=== PATIENT | female | born 1990 | race American Indian/Alaskan Native ===

== ENCOUNTER 2019-03-17 04:17 | Day surgery (SDC) | payer MEDICAID, OTHER ==
[2019-03-17] MEDS ORDERED: Sodium Chloride 0.9% 1,000 ML IV ONE (04:27)
[2019-03-17] MEDS ORDERED: Ondansetron 4 MG/2 ML SDV IV ONE ×3 (04:28→12:47)
[2019-03-17] MEDS ORDERED: Famotidine 20 MG/2 ML SDV IVPUSH ONE (04:28)
[2019-03-17] MEDS ORDERED: HYDROmorphone 1 MG/ML Syringe IVPUSH ONE (04:30)
[2019-03-17] MEDS ORDERED: Iopamidol 612 MG/ML 100 ML Bottle IVPUSH ONE (04:30)
--- NOTE | 2019-03-17 04:32 | EDM.PDOC ---
<Katlin Duncan - Last Filed: 03/17/19 06:17> ED HPI GENERAL MEDICAL PROBLEM - General Chief Complaint: Abdominal Pain Stated Complaint: SEVERE ABD PAIN Time Seen by Provider: 03/17/19 04:32 Source of Information: Reports: Patient History Limitations: Reports: No Limitations - History of Present Illness INITIAL COMMENTS - FREE TEXT/NARRATIVE: ED with c/o severe abdominal pain starting around 0200. Nausea no vomiting. Pain radiates through back. Describes as sharp. No diarrheal No bloating. No fever or chills. 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 Last meal chili dog. LMP one week ago. No ENT sx. No urinary c/o. Epigastric Pain Score (Numeric/FACES): 9 - Related Data Allergies Allergy/AdvReac Type Severity Reaction Status Date / Time Penicillins Allergy Rash Verified 03/17/19 04:26 Home Meds: Home Meds . 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 ED EXAM, GI/ABD - Physical Exam Exam: See Below Exam Limited By: No Limitations General Appearance: Alert, Moderate Distress, Obese Eyes: Bilateral: EOMI Ears: Normal External Exam, Hearing Grossly Normal Nose: Normal Inspection Throat/Mouth: Normal Inspection Head: Atraumatic, Normocephalic Neck: Normal Inspection Respiratory/Chest: No Respiratory Distress, Lungs Clear, Normal Breath Sounds Cardiovascular: Regular Rate, Rhythm GI/Abdominal Exam: Normal Bowel Sounds, Soft, Guarding, Tender (general upper greater mid and right upper with palpation). No: Distended, Rigid, Rebound Back Exam: Full Range of Motion Extremities: Normal Inspection Neurological: Alert, Oriented, Normal Cognition Psychiatric: Normal Affect, Normal Mood Skin Exam: Warm, Dry, Intact, Normal Color Course - Vital Signs Last Recorded V/S: Last Vital Signs Temp 35.9 C 03/17/19 06:22 Pulse 74 03/17/19 06:22 Resp 18 03/17/19 06:22 BP 110/63 03/17/19 06:22 Pulse Ox 97 03/17/19 06:22 - Orders/Labs/Meds Orders: Active Orders 24 hr Category Date Time Status Gallbladder [Abdomen Ltd] [US] Urgent Exams 03/17/19 06:57 Taken Clindamycin Phosphate [Cleocin] 600 mg Med 03/17/19 09:02 Active Sodium Chloride 0.9% [Normal Saline] 100 ml IV ONETIME Medication Orders Clindamycin Phosphate 600 mg/ (Sodium Chloride) 104 mls @ 200 mls/hr IV ONETIME ONE Stop: 03/17/19 09:33 Labs: Laboratory Tests 03/17/19 03/17/19 03/17/19 Range/Units 04:35 04:35 04:35 WBC (5.0-10.0) 10^3/uL RBC (4.2-5.4) 10^6/uL Hgb (12.0-16.0) g/dL Hct (37.0-47.0) % MCV (80-100) fL MCH (27.0-34.0) pg MCHC (33.0-35.0) g/dL Plt Count (150-450) 10^3/uL Neut % (Auto) (42.2-75.2) % Lymph % (Auto) (20.5-50.1) % Williamson % (Auto) (2-8) % Eos % (Auto) (1.0-3.0) % Baso % (Auto) (0.0-1.0) % Sodium (135-145) mmol/L Potassium (3.6-5.0) mmol/L Chloride (101-111) mmol/L Carbon Dioxide (21.0-31.0) mmol/L Anion Gap BUN (7-18) mg/dL Creatinine (0.6-1.3) mg/dL Est Cr Clr Drug Dosing mL/min Estimated GFR (MDRD) BUN/Creatinine Ratio Glucose (74-105) mg/dL Lactic Acid (0.5-2.2) mmol/L Calcium (8.4-10.2) mg/dl Total Bilirubin (0.2-1.0) mg/dL AST (10-42) IU/L ALT (10-60) IU/L Alkaline Phosphatase (42-121) IU/L Total Protein (6.7-8.2) g/dl Albumin (3.2-5.5) g/dl Globulin Albumin/Globulin Ratio Amylase (28-100) U/L Lipase (22-51) U/L Urine Color Yellow (YELLOW) Urine Appearance Clear (CLEAR) Urine pH 6.0 (5.0-9.0) Ur Specific [place] >= 1.030 (1.005-1.030) Urine Protein 100 H (NEGATIVE) Urine Glucose (UA) Negative (NEGATIVE) Urine Ketones Negative (NEGATIVE) Urine Occult Blood Trace-intact H (NEGATIVE) Urine Nitrite Negative (NEGATIVE) Urine Bilirubin Negative (NEGATIVE) Urine Urobilinogen 0.2 (0.2-1.0) mg/dL Ur Leukocyte Esterase Negative (NEGATIVE) Urine RBC 0-5 /HPF Urine WBC 0-5 (0-5/HPF) /HPF Ur Epithelial Cells Moderate H (NOT SEEN) /HPF Urine Bacteria Few (0-FEW/HPF) /HPF Urine Mucus Moderate H (NOT SEEN) /LPF Urine HCG, Qual Negative Urine Opiates Screen Negative (NEGATIVE) Ur Oxycodone Screen Negative (NEGATIVE) Urine Methadone Screen Negative (NEGATIVE) Ur Barbiturates Screen Negative (NEGATIVE) U Tricyclic Antidepress Negative (NEGATIVE) Ur Phencyclidine Scrn Negative (NEGATIVE) Ur Amphetamine Screen Negative (NEGATIVE) U Methamphetamines Scrn Negative (NEGATIVE) Urine MDMA Screen Negative (NEGATIVE) U Benzodiazepines Scrn Negative (NEGATIVE) Urine Cocaine Screen Negative (NEGATIVE) U Marijuana (THC) Screen Positive H (NEGATIVE) 03/17/19 03/17/19 03/17/19 Range/Units 04:36 04:36 04:36 WBC 8.8 (5.0-10.0) 10^3/uL RBC 5.20 (4.2-5.4) 10^6/uL Hgb 14.5 (12.0-16.0) g/dL Hct 42.6 (37.0-47.0) % MCV 81.9 (80-100) fL MCH 27.9 (27.0-34.0) pg MCHC 34.0 (33.0-35.0) g/dL Plt Count 409 (150-450) 10^3/uL Neut % (Auto) 50.3 (42.2-75.2) % Lymph % (Auto) 37.8 (20.5-50.1) % Williamson % (Auto) 6.5 (2-8) % Eos % (Auto) 5.1 H (1.0-3.0) % Baso % (Auto) 0.3 (0.0-1.0) % Sodium 139 (135-145) mmol/L Potassium 3.8 (3.6-5.0) mmol/L Chloride 106 (101-111) mmol/L Carbon Dioxide 25.0 (21.0-31.0) mmol/L Anion Gap 11.8 BUN 9 (7-18) mg/dL Creatinine 0.5 L (0.6-1.3) mg/dL Est Cr Clr Drug Dosing 152.61 mL/min Estimated GFR (MDRD) > 60 BUN/Creatinine Ratio 18.00 Glucose 200 H (74-105) mg/dL Lactic Acid 1.4 (0.5-2.2) mmol/L Calcium 8.3 L (8.4-10.2) mg/dl Total Bilirubin 1.1 H (0.2-1.0) mg/dL AST 60 H (10-42) IU/L ALT 73 H (10-60) IU/L Alkaline Phosphatase 88 (42-121) IU/L Total Protein 7.9 (6.7-8.2) g/dl Albumin 3.6 (3.2-5.5) g/dl Globulin 4.3 Albumin/Globulin Ratio 0.84 Amylase 33 (28-100) U/L Lipase 32 (22-51) U/L Urine Color (YELLOW) Urine Appearance (CLEAR) Urine pH (5.0-9.0) Ur Specific [place] (1.005-1.030) Urine Protein (NEGATIVE) Urine Glucose (UA) (NEGATIVE) Urine Ketones (NEGATIVE) Urine Occult Blood (NEGATIVE) Urine Nitrite (NEGATIVE) Urine Bilirubin (NEGATIVE) Urine Urobilinogen (0.2-1.0) mg/dL Ur Leukocyte Esterase (NEGATIVE) Urine RBC /HPF Urine WBC (0-5/HPF) /HPF Ur Epithelial Cells (NOT SEEN) /HPF Urine Bacteria (0-FEW/HPF) /HPF Urine Mucus (NOT SEEN) /LPF Urine HCG, Qual Urine Opiates Screen (NEGATIVE) Ur Oxycodone Screen (NEGATIVE) Urine Methadone Screen (NEGATIVE) Ur Barbiturates Screen (NEGATIVE) U Tricyclic Antidepress (NEGATIVE) Ur Phencyclidine Scrn (NEGATIVE) Ur Amphetamine Screen (NEGATIVE) U Methamphetamines Scrn (NEGATIVE) Urine MDMA Screen (NEGATIVE) U Benzodiazepines Scrn (NEGATIVE) Urine Cocaine Screen (NEGATIVE) U Marijuana (THC) Screen (NEGATIVE) Meds: Medications Generic Name Dose Route Start Last Admin Trade Name Freq PRN Reason Stop Dose Admin Clindamycin Phosphate 600 mg/ 104 mls @ 200 mls/hr 03/17/19 09:02 Sodium Chloride IV 03/17/19 09:33 ONETIME ONE Discontinued Medications Generic Name Dose Route Start Last Admin Trade Name Freq PRN Reason Stop Dose Admin Diphenhydramine HCl 25 mg 03/17/19 09:04 Benadryl IVPUSH 03/17/19 09:05 ONETIME ONE Famotidine 20 mg 03/17/19 04:28 03/17/19 04:39 Pepcid IVPUSH 03/17/19 04:29 20 mg ONETIME ONE Administration Hydromorphone HCl 1 mg 03/17/19 04:30 03/17/19 04:41 Dilaudid IVPUSH 03/17/19 04:31 1 mg ONETIME ONE Administration Sodium Chloride 1,000 mls @ 999 mls/hr 03/17/19 04:27 03/17/19 04:37 Normal Saline IV 03/17/19 05:27 999 mls/hr .BOLUS ONE Administration Iopamidol 100 ml 03/17/19 04:30 03/17/19 06:23 Isovue-300 (61%) IVPUSH 03/17/19 04:31 100 ml ONETIME ONE Administration Ondansetron HCl 4 mg 03/17/19 04:28 03/17/19 04:39 Zofran IV 03/17/19 04:29 4 mg ONETIME ONE Administration Ondansetron HCl 4 mg 03/17/19 09:04 Zofran IV 03/17/19 09:05 ONETIME ONE Departure - Departure Disposition: Admitted As Inpatient 64 Clinical Impression: Cholelithiasis Qualifiers: Cholelithiasis location: gallbladder Cholecystitis presence: without cholecystitis Biliary obstruction: without biliary obstruction Qualified Code(s) : K80.20 - Calculus of gallbladder without cholecystitis without obstruction - Discharge Information Forms: ED Department Discharge - My Orders Last 24 Hours: My Active Orders 03/17/19 06:57 Gallbladder [Abdomen Ltd] [US] Urgent 03/17/19 09:02 Clindamycin Phosphate [Cleocin] 600 mg Sodium Chloride 0.9% [Normal Saline] 100 ml IV ONETIME - Assessment/Plan Last 24 Hours: My Active Orders 03/17/19 06:57 Gallbladder [Abdomen Ltd] [US] Urgent 03/17/19 09:02 Clindamycin Phosphate [Cleocin] 600 mg Sodium Chloride 0.9% [Normal Saline] 100 ml IV ONETIME <ScarNicholas marshall Franklyn - Last Filed: 03/17/19 09:19> Course - Re-Assessments/Exams Free Text/Narrative Re-Assessment/Exam: 03/17/19 09:02 I assumed care of this patient at 0700 hrs. today. She is resting comfortably on the cot she is still complaining of nausea although little to no pain. Her abdomen is soft mildly tender in the epigastric without guarding or rebound. CT scan is concerning for some fat stranding around the gallbladder and concerns for acute cholecystitis. Ultrasound of the gallbladder shows a rather large gallstone common bile duct saul are okay. No pericystic fluid. I did have Dr. Bruno come and see the patient in the ED. The decision was made to remove the gallbladder today. Please see Dr. Acosta note. The patient was comfortable with this plan and her questions answered. Departure - Departure Time of Disposition: :17 - Assessment/Plan Assessment:: Cholelithiasis elevated liver enzymes Dr. Bruno taking to surgery from the ED. Plan: Admit Dr. Bruno.
[2019-03-17 05:05] LABS: ANION GAP 11.8; CHLORIDE,CL 106 mmol/L (101-111); SODIUM,NA 139 mmol/L (135-145)
[2019-03-17] MEDS ORDERED: Clindamycin Phosphate 600 MG in Sodium Chloride 0.9% 100 ML IV ONE (09:02)
[2019-03-17] MEDS ORDERED: diphenhydrAMINE 50 MG/ML SDV IVPUSH ONE (09:04)
--- NOTE | 2019-03-17 10:17 | HP ---
INTRODUCTION: This 29-year-old female presented to the emergency room with epigastric and abdominal pain in the right upper quadrant. It does radiate all over the upper abdomen. CT scan shows a large stone within the gallbladder. Her bilirubin is slightly elevated at 1.8, but no other elevated white blood cell count or liver enzymes. This is the first time she has experienced this attack. She did not know she has had any gallstone problems before. PAST MEDICAL HISTORY: The patient has allergies to penicillin. CURRENT MEDICATIONS: Albuterol inhaler p.r.n. PRIOR SURGERIES: Include one diagnostic laparoscopy for uterine evaluation. FAMILY HISTORY AND SOCIAL HISTORY: The patient lives here locally. She works at [employer]. She does not smoke. She has children who are teenagers. REVIEW OF SYSTEMS: Negative for all systems. PHYSICAL EXAMINATION: HEENT: Normal. Chest: Lungs are clear bilaterally. Heart: Normal sinus rhythm. Abdomen: Morbidly obese. She has mild tenderness in the epigastric and right upper quadrant area. She is too large to palpate a liver or a mass. No evidence of hernias. Extremities: Normal. Neurologic: Intact. LABORATORY DATA: Significant lab is elevated bilirubin and a negative test. PLAN: This patient is n.p.o. I discussed the risks, benefits, and expected outcomes of proceeding with a cholecystectomy today. She is amenable to that course. At only 29 years old, she will certainly have problems with a large gallstone and feels best to have this procedure over with today. We will proceed to the operating room. [facility] /[id number]
[2019-03-17] MEDS: Lactated Ringers 1,000 ML IV SCH ×2 (11:00→15:22)
[2019-03-17] MEDS ORDERED: Acetaminophen/oxyCODONE 325-5 MG Tab PO PRN (12:45)
[2019-03-17] MEDS ORDERED: Morphine 2 MG/ML Syringe IVPUSH PRN (12:45)
[2019-03-17] MEDS ORDERED: Ketorolac 30 MG/ML SDV IVPUSH ONE (12:47)
[2019-03-17] MEDS ORDERED: Propofol 200 MG/20 ML SDV IV ONE (12:47)
[2019-03-17] MEDS ORDERED: fentaNYL 100 MCG/2 ML SDV IV ONE (12:47)
[2019-03-17] MEDS ORDERED: Lidocaine 2% 20 ML MDV INJECT ONE (12:47)
[2019-03-17] MEDS ORDERED: fentaNYL 250 MCG/5 ML SDV IV ONE (12:47)
[2019-03-17] MEDS ORDERED: Glycopyrrolate 0.2 MG/ML 2 ML SDV IV ONE (12:47)
[2019-03-17] MEDS ORDERED: Neostigmine Methylsulfate 10 MG/10 ML MDV IV ONE (12:47)
[2019-03-17] MEDS ORDERED: Midazolam 1 MG/ML 2 ML SDV IV ONE (12:47)
[2019-03-17] MEDS ORDERED: Rocuronium 100 MG/10 ML MDV IV ONE (12:47)
[2019-03-17] MEDS ORDERED: Sodium Chloride 0.9% 10 ML Syringe FLUSH PRN (12:48)
--- NOTE | 2019-03-17 14:51 | OR ---
DATE: 03/17/2019 PREOPERATIVE DIAGNOSIS: Cholecystitis with cholelithiasis. POSTOPERATIVE DIAGNOSIS: Cholecystitis with cholelithiasis. PROCEDURE PERFORMED: Laparoscopic cholecystectomy. ANESTHESIA: General. ESTIMATED BLOOD LOSS: Minimal. SPECIMENS: Gallbladder and stone. OPERATIVE FINDINGS: Single, large stone. INDICATION FOR PROCEDURE: This 29-year-old female presented to the emergency room today with acute epigastric and right upper quadrant abdominal pain. CT scan of the abdomen showed a single large stone. PROCEDURE IN DETAIL: After adequate preparation, a Veress needle was placed in the right upper quadrant as an alternate access entry port. The abdomen was insufflated, and then a 5 mm trocar was inserted. The 3 other trocars were placed under direct vision. The gallbladder appeared to be normal and was not thick-walled or chronically infected. It was elevated up over the liver, and the cystic triangle structures were dissected free. They were multiply clipped and divided. There was some bleeding of the cystic duct area, and several of the clips had to be applied to stop the bleeding that eventually occurred. The gallbladder was taken off the liver bed using blunt, sharp, and cautery dissection. The gallbladder bed was then cauterized for hemostasis. The gallbladder was placed in a sterile retrieval bag and brought out through the epigastric trocar site. The abdomen was desufflated. The epigastric trocar site fascia was closed with 0 Vicryl suture, and Monocryl was used for the skin. The gallbladder was opened on the back table and contained one large olive-sized single stone. [facility] /[id number]
[2019-03-17] MEDS: Morphine 2 MG/ML Syringe IVPUSH PRN ×2 (15:50→17:06)
[2019-03-17] MEDS ORDERED: Ondansetron 4 MG/2 ML SDV IV PRN (18:49)
[2019-03-17] MEDS: Acetaminophen/oxyCODONE 325-5 MG Tab PO PRN (19:09)
[2019-03-18] MEDS: Acetaminophen/oxyCODONE 325-5 MG Tab PO PRN ×2 (00:32→06:45)
--- NOTE | 2019-03-18 08:21 | PCM.SN ---
- Free Text/Narrative Note: Patient stable POD# 1. Some nausea last night, now resolved. Minimal pain. Wounds clean and dry. PO tolerated with problem. Able to ambulate on own. VSS. Labs today better. WBC and Hgb now normal. LFT's better even though ally. elevated (it in indirect). Will discharge today. No FU needed. No pain meds given. No restriction on diet or activity. May shower. May return to work on 03-29-19.
== END 2019-03-18 09:45 | disposition home or self-care (01) ==
LOC: DL.SDS 04:17 → DL.MS 12:46 → DL.SDS 12:46
PROVIDERS: ATTEND Surgery
DX: K80.10 Calculus of gallbladder with chronic cholecystitis without obstruction (principal); N80.0 Endometriosis of uterus; J45.909 Unspecified asthma, uncomplicated; E66.01 Morbid (severe) obesity due to excess calories; Z88.0 Allergy status to penicillin; Z68.42 Body mass index [BMI] 45.0-49.9, adult
CPT/HCPCS: 36415; 47562; 74177; 76705; 80053; 80076; 80305; 81001; 81025; 82150; 83605; 83690; 85025; A9270; J1170; J1200; J1885; J2001; J2250; J2270; J2405; J2704; J2710; J3010; J3490; J7030; J7050; J7120; Q9967

== ENCOUNTER 2019-03-18 21:40 | Emergency (ER) | payer MEDICAID ==
[2019-03-18] MEDS ORDERED: Sodium Chloride 0.9% 1,000 ML IV ONE (22:48)
[2019-03-18] MEDS ORDERED: Morphine 2 MG/ML Syringe IVPUSH ONE (22:48)
[2019-03-18] MEDS ORDERED: Ondansetron 4 MG/2 ML SDV IV ONE (22:48)
--- NOTE | 2019-03-18 22:51 | EDM.PDOC ---
ED HPI GENERAL MEDICAL PROBLEM - General Chief Complaint: Abdominal Pain Stated Complaint: GALLBLADDER SURGERY PAIN ISSUES PER PT Time Seen by Provider: 03/18/19 22:49 Source of Information: Reports: Patient History Limitations: Reports: No Limitations - History of Present Illness INITIAL COMMENTS - FREE TEXT/NARRATIVE: s/p lap peggy yesterday, d/c today. did eat but no BM yet. still had abd pain mostly at surgical sites. 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 ED EXAM, GI/ABD - Physical Exam Exam: See Below Exam Limited By: No Limitations General Appearance: Alert, WD/WN, Mild Distress, Moderate Distress, Other ( tearful). No: Active Emesis Ears: Hearing Grossly Normal Throat/Mouth: Normal Voice, No Airway Compromise Head: Atraumatic Neck: Non-Tender, Full Range of Motion Respiratory/Chest: No Respiratory Distress Cardiovascular: Regular Rate, Rhythm GI/Abdominal Exam: Tender, Other (general, surgical sites without s/s cellulitis ). No: Distended, Guarding, Rigid, Rebound Neurological: Alert, Oriented, Normal Cognition, Normal Gait, No Motor/Sensory Deficits Psychiatric: Tearful Skin Exam: Warm, Dry, Normal Color Lymphatic: No Adenopathy Course - Vital Signs Last Recorded V/S: Last Vital Signs Temp 37.1 C 03/19/19 02:10 Pulse 86 03/19/19 02:10 Resp 17 03/19/19 02:10 BP 135/76 03/19/19 02:10 Pulse Ox 96 03/19/19 02:10 - Orders/Labs/Meds Orders: Active Orders 24 hr Category Date Time Status Abdomen Pelvis w Cont [CT] Urgent Exams 03/19/19 00:38 Taken Labs: Laboratory Tests 03/18/19 03/18/19 03/18/19 Range/Units 22:55 22:55 22:55 WBC 13.3 H (5.0-10.0) 10^3/uL RBC 5.20 (4.2-5.4) 10^6/uL Hgb 14.8 D (12.0-16.0) g/dL Hct 43.0 (37.0-47.0) % MCV 82.7 (80-100) fL MCH 28.5 (27.0-34.0) pg MCHC 34.4 (33.0-35.0) g/dL Plt Count 388 (150-450) 10^3/uL Neut % (Auto) 78.5 H (42.2-75.2) % Lymph % (Auto) 13.4 L (20.5-50.1) % [place] % (Auto) 7.1 (2-8) % Eos % (Auto) 0.7 L (1.0-3.0) % Baso % (Auto) 0.3 (0.0-1.0) % Sodium 138 (135-145) mmol/L Potassium 3.5 L (3.6-5.0) mmol/L Chloride 102 (101-111) mmol/L Carbon Dioxide 27.0 (21.0-31.0) mmol/L Anion Gap 12.5 BUN 6 L (7-18) mg/dL Creatinine 0.6 (0.6-1.3) mg/dL Est Cr Clr Drug Dosing 127.18 mL/min Estimated GFR (MDRD) > 60 BUN/Creatinine Ratio 10.00 Glucose 194 H (74-105) mg/dL Lactic Acid 1.5 (0.5-2.2) mmol/L Calcium 8.5 (8.4-10.2) mg/dl Total Bilirubin 2.2 H (0.2-1.0) mg/dL Direct Bilirubin 0.4 H (0.0-0.2) mg/dL AST 66 H (10-42) IU/L ALT 83 H (10-60) IU/L Alkaline Phosphatase 75 (42-121) IU/L Total Protein 8.1 (6.7-8.2) g/dl Albumin 3.7 (3.2-5.5) g/dl Globulin 4.4 Albumin/Globulin Ratio 0.84 Meds: Medications Discontinued Medications Generic Name Dose Route Start Last Admin Trade Name Freq PRN Reason Stop Dose Admin Hydromorphone HCl 1 mg 03/19/19 00:38 03/19/19 00:44 Dilaudid IVPUSH 03/19/19 00:39 1 mg ONETIME ONE Administration Sodium Chloride 1,000 mls @ 999 mls/hr 03/18/19 22:48 03/18/19 23:10 Normal Saline IV 03/18/19 23:48 999 mls/hr .BOLUS ONE Administration Clindamycin Phosphate 900 mg/ 106 mls @ 200 mls/hr 03/19/19 01:55 03/19/19 02 :04 Sodium Chloride IV 03/19/19 02:26 200 mls/hr ONETIME ONE Administration Iopamidol 100 ml 03/19/19 00:38 03/19/19 00:48 Isovue-300 (61%) IVPUSH 03/19/19 00:39 100 ml ONETIME ONE Administration Morphine Sulfate 2 mg 03/18/19 22:48 03/18/19 23:09 Morphine IVPUSH 03/18/19 22:49 2 mg ONETIME ONE Administration Ondansetron HCl 4 mg 03/18/19 22:48 03/18/19 23:06 Zofran IV 03/18/19 22:49 4 mg ONETIME ONE Administration - Re-Assessments/Exams Free Text/Narrative Re-Assessment/Exam: 03/19/19 03:04 results discussed with pt & spouse. Departure - Departure Time of Disposition: 03:04 Disposition: Home, Self-Care 01 Condition: Good Clinical Impression: Postoperative generalized abdominal pain - Discharge Information Forms: ED Department Discharge Additional Instructions: 1) rest and avoid bending lifting straining 2) no solid foods next 3 to 4 days 3) have broth, jello, popsicle, prune juice 4) follow up at clinic rx given; vicodin 5/325mg bid to tid prn pain x 12 - My Orders Last 24 Hours: My Active Orders 03/19/19 00:38 Abdomen Pelvis w Cont [CT] Urgent - Assessment/Plan Last 24 Hours: My Active Orders 03/19/19 00:38 Abdomen Pelvis w Cont [CT] Urgent
[2019-03-18 23:21] LABS: ANION GAP 12.5; CHLORIDE,CL 102 mmol/L (101-111); SODIUM,NA 138 mmol/L (135-145)
[2019-03-19] MEDS ORDERED: HYDROmorphone 1 MG/ML Syringe IVPUSH ONE (00:38)
[2019-03-19] MEDS ORDERED: Iopamidol 612 MG/ML 100 ML Bottle IVPUSH ONE (00:38)
[2019-03-19] MEDS ORDERED: Clindamycin Phosphate 900 MG in Sodium Chloride 0.9% 100 ML IV ONE (01:55)
== END 2019-03-19 03:10 | disposition home or self-care (01) ==
LOC: DL.ED 21:40
DX: G89.18 Other acute postprocedural pain (principal); R10.84 Generalized abdominal pain; Z88.0 Allergy status to penicillin; Z90.49 Acquired absence of other specified parts of digestive tract
CPT/HCPCS: 36415; 74177; 80053; 82248; 83605; 85025; 96361; 96365; 96375; 99284; J1170; J2270; J2405; J3490; J7030; J7050; Q9967

== ENCOUNTER 2020-02-14 19:32 | Emergency (ER) | payer SELFPAY ==
[2020-02-14 20:21] LABS: ANION GAP 11.8 mEq/L (7-13); CHLORIDE,CL 104 mmol/L (98-107); SODIUM,NA 140 mmol/L (136-145)
--- NOTE | 2020-02-14 20:31 | CT ---
PROCEDURE INFORMATION: Exam: CT Cervical Spine Without Contrast Exam date and time: 02/14/2020 8:14 PM Age: 30 years old Clinical indication: Injury or trauma; Fall; Initial encounter; Concussion /head injury; Additional info: Dizzy fell hit head in shower, vomiting TECHNIQUE: Imaging protocol: Computed tomography images of the cervical spine without contrast. Radiation optimization: All CT scans at this facility use at least one of these dose optimization techniques: automated exposure control; mA and/or kV adjustment per patient size (includes targeted exams where dose is matched to clinical indication); or iterative reconstruction. COMPARISON: No relevant prior studies available. FINDINGS: Vertebrae: There is normal alignment throughout the cervical spine. There is mild reversal of the normal cervical lordosis. There is preservation of the vertebral body heights. No acute fracture is identified. The ring of C1 is intact. The dens is intact. The atlantoaxial articulation is preserved. The facet joints are normally aligned and articulated. Discs/Spinal canal/Neural foramina: The intervertebral disc heights are preserved. There are prominent anterior osteophytes at C5-C6 and C6-C7. The central canal caliber is well maintained. No neural foraminal stenosis is identified. Other bones/joints: The base of the skull is intact. The temporomandibular joints are normally articulated. Soft tissues: No soft tissue hematoma is appreciated. There are prominent cervical lymph nodes. The left jugulodigastric lymph node measures 20 x 14 mm in the axial plane and the right jugulodigastric lymph node measures the same. Lungs: The visualized lung apices are clear. IMPRESSION: No acute fracture or malalignment identified.
--- NOTE | 2020-02-14 20:33 | CT ---
PROCEDURE INFORMATION: Exam: CT Head Without Contrast Exam date and time: 02/14/2020 8:14 PM Age: 30 years old Clinical indication: Injury or trauma; Fall; Initial encounter; Concussion / head injury; Additional info: Dizzy fell hit head in shower, vomiting TECHNIQUE: Imaging protocol: Computed tomography of the head without contrast. Radiation optimization: All CT scans at this facility use at least one of these dose optimization techniques: automated exposure control; mA and/or kV adjustment per patient size (includes targeted exams where dose is matched to clinical indication); or iterative reconstruction. COMPARISON: No relevant prior studies available. FINDINGS: Brain: The brain is normal in appearance. There is no intracranial hemorrhage. There is no acute edema, mass effect or shift of the normally midline structures. The marie-white matter differentiation is preserved. There are no extra-axial fluid collections. Ventricles: The ventricles and sulci are age appropriate. Bones/joints: The calvarium is intact. Paranasal sinuses: There is a 2 cm mucous retention cyst or polyp in the left maxillary sinus. The sinuses are otherwise normally aerated. Mastoid air cells: The mastoid air cells and middle ear cavities are normally aerated. Soft tissues: No soft tissue hematoma is identified. IMPRESSION: No acute intracranial hemorrhage or edema identified.
--- NOTE | 2020-02-14 20:48 | EDM.PDOC ---
ED HPI GENERAL MEDICAL PROBLEM - General Chief Complaint: Head Injury Stated Complaint: FELL HIT HEAD, FAINTED. Time Seen by Provider: 02/14/20 19:50 Source of Information: Reports: Patient History Limitations: Reports: No Limitations - History of Present Illness INITIAL COMMENTS - FREE TEXT/NARRATIVE: fell today in shower around 1230, felt dizzy and was attempting to sit down and fell forward hit right side of head and 'passed out, vomited x 3 after,felt some better after eating peanut butter toast. Blurred vision earlier but resolved now, One time previous similar episode 2 years ago. Prior tubal 10 years ago. No recent fever or chills. No urinary c/o No cough No chest pain. Right Head Pain Score (Numeric/FACES): 3 - Related Data Allergies Allergy/AdvReac Type Severity Reaction Status Date / Time Penicillins Allergy Rash Verified 03/18/19 21:45 Home Meds: Home Meds . 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 ED EXAM, HEAD INJURY - Physical Exam Exam: See Below Exam Limited By: No Limitations General Appearance: Alert, Mild Distress, Obese Head: Normocephalic, Scalp Hematoma (right lower parietal). No: Active Bleeding, Guo's Sign, Facial Abrasions, Facial Ecchymosis, Facial Swelling Nexus Criteria: Painful Distraction Injuries. No: Posterior, Midline Cervical Tenderness, Evidence of Intoxication, Focal Neurological Deficit Eyes: Bilateral Eye: EOMI, Normal Inspection, PERRL (4) Ears: Normal External Exam, Normal TMs Nose: Normal Inspection, Normal Mucousa Throat/Mouth: Normal Inspection, Normal Oropharynx, Normal Voice Neck: Painful Range of Motion (with turning toward right), Tender Lateral (right), Tender Midline. No: Spinous Processes Tender Cardiovascular: Normal Peripheral Pulses, Regular Rate, Rhythm GI/Abdominal Exam: Normal Bowel Sounds, Soft Back Exam: Normal Inspection Extremities: Normal Inspection Neurologic: No Motor/Sensory Deficits, Alert Skin: Normal Color, Warm/Dry - [place] Coma Score Best Eye Response ([place]): (4) Open Spontaneously Best Verbal Response ([place]): (5) Oriented Best Motor Response ([place]): (6) Obeys Commands Micheal Total: 15 Course - Vital Signs Last Recorded V/S: Last Vital Signs Temp 99 F 02/14/20 19:47 Pulse 85 02/14/20 19:47 Resp 18 02/14/20 19:47 BP 125/76 02/14/20 19:47 Pulse Ox 99 02/14/20 19:47 - Orders/Labs/Meds Labs: Laboratory Tests 02/14/20 02/14/20 02/14/20 Range/Units 19:49 19:49 19:58 WBC 13.9 H (5.0-10.0) 10^3/uL RBC 4.95 (4.2-5.4) 10^6/uL Hgb 12.7 D (12.0-16.0) g/dL Hct 38.7 (37.0-47.0) % MCV 78.2 L D (80-100) fL MCH 25.7 L (27.0-34.0) pg MCHC 32.8 L (33.0-35.0) g/dL Plt Count 464 H D (150-450) 10^3/uL Neut % (Auto) 69.2 (42.2-75.2) % Lymph % (Auto) 24.7 (20.5-50.1) % [place] % (Auto) 4.8 (2-8) % Eos % (Auto) 1.1 (1.0-3.0) % Baso % (Auto) 0.2 (0.0-1.0) % Sodium 140 (136-145) mmol/L Potassium 3.8 (3.5-5.1) mmol/L Chloride 104 (98-107) mmol/L Carbon Dioxide 28 (21-32) mmol/L Anion Gap 11.8 (7-13) mEq/L BUN 9 (7-18) mg/dL Creatinine 0.64 (0.55-1.02) mg/dL Est Cr Clr Drug Dosing 108.97 mL/min Estimated GFR (MDRD) > 60 BUN/Creatinine Ratio 14.1 (No establ ref range) Glucose 142 H (74-99) mg/dL POC Glucose 117 H (70-105) mg/dl Calcium 9.2 (8.5-10.1) mg/dL Total Bilirubin 1.0 (0.2-1.0) mg/dL AST 47 H (15-37) U/L ALT 74 H (14-59) U/L Alkaline Phosphatase 79 (46-116) U/L Total Protein 7.9 (6.4-8.2) g/dL Albumin 3.3 L (3.4-5.0) g/dL Globulin 4.6 Albumin/Globulin Ratio 0.72 HCG, Qual Negative Urine Color (YELLOW) Urine Appearance (CLEAR) Urine pH (5.0-9.0) Ur Specific [place] (1.005-1.030) Urine Protein (NEGATIVE) Urine Glucose (UA) (NEGATIVE) Urine Ketones (NEGATIVE) Urine Occult Blood (NEGATIVE) Urine Nitrite (NEGATIVE) Urine Bilirubin (NEGATIVE) Urine Urobilinogen (0.2-1.0) mg/dL Ur Leukocyte Esterase (NEGATIVE) 02/14/20 Range/Units 20:48 WBC (5.0-10.0) 10^3/uL RBC (4.2-5.4) 10^6/uL Hgb (12.0-16.0) g/dL Hct (37.0-47.0) % MCV (80-100) fL MCH (27.0-34.0) pg MCHC (33.0-35.0) g/dL Plt Count (150-450) 10^3/uL Neut % (Auto) (42.2-75.2) % Lymph % (Auto) (20.5-50.1) % [place] % (Auto) (2-8) % Eos % (Auto) (1.0-3.0) % Baso % (Auto) (0.0-1.0) % Sodium (136-145) mmol/L Potassium (3.5-5.1) mmol/L Chloride (98-107) mmol/L Carbon Dioxide (21-32) mmol/L Anion Gap (7-13) mEq/L BUN (7-18) mg/dL Creatinine (0.55-1.02) mg/dL Est Cr Clr Drug Dosing mL/min Estimated GFR (MDRD) BUN/Creatinine Ratio (No establ ref range) Glucose (74-99) mg/dL POC Glucose (70-105) mg/dl Calcium (8.5-10.1) mg/dL Total Bilirubin (0.2-1.0) mg/dL AST (15-37) U/L ALT (14-59) U/L Alkaline Phosphatase (46-116) U/L Total Protein (6.4-8.2) g/dL Albumin (3.4-5.0) g/dL Globulin Albumin/Globulin Ratio HCG, Qual Urine Color Yellow (YELLOW) Urine Appearance Clear (CLEAR) Urine pH 7.0 (5.0-9.0) Ur Specific [place] 1.020 (1.005-1.030) Urine Protein Negative (NEGATIVE) Urine Glucose (UA) Negative (NEGATIVE) Urine Ketones Negative (NEGATIVE) Urine Occult Blood Negative (NEGATIVE) Urine Nitrite Negative (NEGATIVE) Urine Bilirubin Negative (NEGATIVE) Urine Urobilinogen 0.2 (0.2-1.0) mg/dL Ur Leukocyte Esterase Negative (NEGATIVE) Departure - Departure Time of Disposition: 20:46 Disposition: Home, Self-Care 01 Condition: Good Clinical Impression: Concussion with less than 1 hour loss of consciousness Fall in home Qualifiers: Encounter type: initial encounter Qualified Code(s): W19.XXXA - Unspecified fall, initial encounter Contusion of scalp Qualifiers: Encounter type: initial encounter Qualified Code(s): S00.03XA - Contusion of scalp, initial encounter - Discharge Information *PRESCRIPTION DRUG MONITORING PROGRAM REVIEWED*: No *COPY OF PRESCRIPTION DRUG MONITORING REPORT IN PATIENT LISA: No Instructions: Concussion, Adult, [id number], Head Injury, Adult, [id number] Referrals: PCP,None [Primary Care Provider] - Forms: ED Department Discharge Additional Instructions: rest light diet advance as tolerated change positions slowly limit activity for next few days, advance as tolerated urgent follow up if confusion, severe headache repeated vomiting tylenol 650mg every 4 hours as needed for headache Sepsis Event Note (ED) - Evaluation Sepsis Screening Result: No Definite Risk - Focused Exam Vital Signs: Vital Signs Temp Pulse Resp BP Pulse Ox 02/14/20 19:47 99 F 85 18 125/76 99
== END 2020-02-14 21:20 | disposition home or self-care (01) ==
LOC: DL.ED 19:32
DX: S06.0X1A Concussion with loss of consciousness of 30 minutes or less, initial encounter (principal); S00.03XA Contusion of scalp, initial encounter; F17.210 Nicotine dependence, cigarettes, uncomplicated; Z88.0 Allergy status to penicillin; W18.2XXA Fall in (into) shower or empty bathtub, initial encounter
CPT/HCPCS: 36415; 70450; 72125; 80053; 81003; 82962; 84703; 85025; 93005; 99283; 99284-25

== ENCOUNTER 2020-10-30 17:06 | Emergency (ER) | payer SELFPAY ==
[2020-10-30 20:57] LABS: ANION GAP 10.7 mEq/L (7-13); CHLORIDE,CL 106 mmol/L (98-107); SODIUM,NA 142 mmol/L (136-145)
--- NOTE | 2020-11-01 00:50 | EDM.PDOC ---
ED HPI GENERAL MEDICAL PROBLEM - General Chief Complaint: Abdominal Pain Stated Complaint: PELVIC PAIN, TUBES TIED POSSIBLY Time Seen by Provider: 10/30/20 19:40 Source of Information: Reports: Patient History Limitations: Reports: No Limitations - History of Present Illness INITIAL COMMENTS - FREE TEXT/NARRATIVE: ED with c/o intermittent LLQ pain, and nausea. Sharp shooting pain at times. Last menses irregular, heavier than normal bleeding for 12 hours then just light spotting. Prior tubal 10 eyars ago. Has not been seen in clinic "too busy'. No urinary sx. no nausea or vomting at present. relays prior hx of ovarian cysts. Left Lower Abdomen Pain Score (Numeric/FACES): 4 - Related Data Allergies Allergy/AdvReac Type Severity Reaction Status Date / Time Penicillins Allergy Rash Verified 10/30/20 19:30 Home Meds: Home Meds . 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: ovarian cysts with hx of leep procedure, laparoscopic surgery - Past Surgical History GI Surgical History: Reports: Cholecystectomy Female Surgical History: Reports: Tubal Ligation Social & Family History - Family History Family Medical History: No Pertinent Family History - Tobacco Use Tobacco Use Status *Q: Former Tobacco User Used Tobacco, but Quit: Yes Month/Year Tobacco Last Used: 15 - Caffeine Use Caffeine Use: Reports: Energy Drinks, Soda, Tea - Recreational Drug Use Recreational Drug Use: No ED ROS GENERAL - Review of Systems Review Of Systems: Comprehensive ROS is negative, except as noted in HPI. ED EXAM, GI/ABD - Physical Exam Exam: See Below Exam Limited By: No Limitations General Appearance: Alert, No Apparent Distress Eyes: Bilateral: EOMI, Erythema Ears: Normal External Exam Throat/Mouth: Normal Inspection Head: Atraumatic Neck: Normal Inspection Respiratory/Chest: No Respiratory Distress, Lungs Clear, Normal Breath Sounds Cardiovascular: Normal Peripheral Pulses, Regular Rate, Rhythm GI/Abdominal Exam: Normal Bowel Sounds, Soft, Tender (mild LLQ deep palpation) Back Exam: Full Range of Motion Extremities: Normal Inspection, Normal Range of Motion Neurological: Alert, Oriented Psychiatric: Normal Affect Course - Vital Signs Last Recorded V/S: Last Vital Signs Temp 97.4 F 10/30/20 19:36 Pulse 67 10/30/20 19:36 Resp 18 10/30/20 19:36 BP 124/83 10/30/20 19:36 Pulse Ox 100 10/30/20 19:36 - Orders/Labs/Meds Labs: Laboratory Tests 10/30/20 10/30/20 10/30/20 Range/Units 17:09 17:09 19:55 WBC 8.5 (5.0-10.0) 10^3/uL RBC 5.00 (4.2-5.4) 10^6/uL Hgb 12.0 (12.0-16.0) g/dL Hct 37.8 (37.0-47.0) % MCV 75.6 L (80-100) fL MCH 24.0 L (27.0-34.0) pg MCHC 31.7 L (33.0-35.0) g/dL Plt Count 464 H (150-450) 10^3/uL Neut % (Auto) 48.6 (42.2-75.2) % Lymph % (Auto) 39.3 (20.5-50.1) % [place] % (Auto) 7.6 (2-8) % Eos % (Auto) 3.9 H (1.0-3.0) % Baso % (Auto) 0.6 (0.0-1.0) % Sodium (136-145) mmol/L Potassium (3.5-5.1) mmol/L Chloride (98-107) mmol/L Carbon Dioxide (21-32) mmol/L Anion Gap (7-13) mEq/L BUN (7-18) mg/dL Creatinine (0.55-1.02) mg/dL Est Cr Clr Drug Dosing mL/min Estimated GFR (MDRD) BUN/Creatinine Ratio (No establ ref range) Glucose (70-99) mg/dL Lactic Acid (0.4-2.0) mmol/L Calcium (8.5-10.1) mg/dL Total Bilirubin (0.2-1.0) mg/dL AST (15-37) U/L ALT (14-59) U/L Alkaline Phosphatase (46-116) U/L Total Protein (6.4-8.2) g/dL Albumin (3.4-5.0) g/dL Globulin Albumin/Globulin Ratio Urine Color Yellow (YELLOW) Urine Appearance Clear (CLEAR) Urine pH 8.5 (5.0-9.0) Ur Specific [place] 1.020 (1.005-1.030) Urine Protein Negative (NEGATIVE) Urine Glucose (UA) Negative (NEGATIVE) Urine Ketones Negative (NEGATIVE) Urine Occult Blood Large H (NEGATIVE) Urine Nitrite Negative (NEGATIVE) Urine Bilirubin Negative (NEGATIVE) Urine Urobilinogen 0.2 (0.2-1.0) mg/dL Ur Leukocyte Esterase Negative (NEGATIVE) Urine RBC 0-5 /HPF Urine WBC 0-5 (0-5/HPF) /HPF Ur Epithelial Cells Occasional (NOT SEEN) /HPF Amorphous Sediment Few (NOT SEEN) /HPF Urine Bacteria Moderate H (0-FEW/HPF) /HPF Urine HCG, Qual Negative 10/30/20 10/30/20 Range/Units 19:55 19:55 WBC (5.0-10.0) 10^3/uL RBC (4.2-5.4) 10^6/uL Hgb (12.0-16.0) g/dL Hct (37.0-47.0) % MCV (80-100) fL MCH (27.0-34.0) pg MCHC (33.0-35.0) g/dL Plt Count (150-450) 10^3/uL Neut % (Auto) (42.2-75.2) % Lymph % (Auto) (20.5-50.1) % [place] % (Auto) (2-8) % Eos % (Auto) (1.0-3.0) % Baso % (Auto) (0.0-1.0) % Sodium 142 (136-145) mmol/L Potassium 3.7 (3.5-5.1) mmol/L Chloride 106 (98-107) mmol/L Carbon Dioxide 29 (21-32) mmol/L Anion Gap 10.7 (7-13) mEq/L BUN 10 (7-18) mg/dL Creatinine 0.68 (0.55-1.02) mg/dL Est Cr Clr Drug Dosing 111.19 mL/min Estimated GFR (MDRD) > 60 BUN/Creatinine Ratio 14.7 (No establ ref range) Glucose 94 (70-99) mg/dL Lactic Acid 0.8 (0.4-2.0) mmol/L Calcium 8.3 L (8.5-10.1) mg/dL Total Bilirubin 1.4 H (0.2-1.0) mg/dL AST 17 (15-37) U/L ALT 26 (14-59) U/L Alkaline Phosphatase 60 (46-116) U/L Total Protein 7.6 (6.4-8.2) g/dL Albumin 3.3 L (3.4-5.0) g/dL Globulin 4.3 Albumin/Globulin Ratio 0.77 Urine Color (YELLOW) Urine Appearance (CLEAR) Urine pH (5.0-9.0) Ur Specific [place] (1.005-1.030) Urine Protein (NEGATIVE) Urine Glucose (UA) (NEGATIVE) Urine Ketones (NEGATIVE) Urine Occult Blood (NEGATIVE) Urine Nitrite (NEGATIVE) Urine Bilirubin (NEGATIVE) Urine Urobilinogen (0.2-1.0) mg/dL Ur Leukocyte Esterase (NEGATIVE) Urine RBC /HPF Urine WBC (0-5/HPF) /HPF Ur Epithelial Cells (NOT SEEN) /HPF Amorphous Sediment (NOT SEEN) /HPF Urine Bacteria (0-FEW/HPF) /HPF Urine HCG, Qual - Re-Assessments/Exams Free Text/Narrative Re-Assessment/Exam: 11/01/20 00:45 Patient left . Did not want to wait for results of labs and finding. Mehanical issue with lab an dED busy with critical patients. Departure - Departure Time of Disposition: 21:10 Disposition: Against Medical Advice 07 Condition: Good Clinical Impression: Abdominal pain Qualifiers: Abdominal location: left lower quadrant Qualified Code(s): R10.32 - Left lower quadrant pain - Discharge Information Forms: ED Department Discharge Sepsis Event Note (ED) - Evaluation Sepsis Screening Result: No Definite Risk
== END 2020-10-30 21:11 | disposition left against medical advice (07) ==
LOC: DL.ED 17:06
DX: R10.32 Left lower quadrant pain (principal); Z88.0 Allergy status to penicillin; Z87.891 Personal history of nicotine dependence
CPT/HCPCS: 36415; 80053; 81001; 81025; 83605; 85025; 99284

== ENCOUNTER 2021-08-07 08:20 | Emergency (ER) | payer SELFPAY ==
[2021-08-07 09:32] LABS: CORONAVIRUS COVID-19 NAA NEGATIVE (NEGATIVE)
== END 2021-08-07 11:01 | disposition home or self-care (01) ==
LOC: DL.ED 08:20
DX: J45.41 Moderate persistent asthma with (acute) exacerbation (principal); Z88.0 Allergy status to penicillin; Z72.0 Tobacco use; Z20.822 Contact with and (suspected) exposure to COVID-19
CPT/HCPCS: 0240U; 99283